=== PATIENT | female | born 1980 | race Caucasian/White ===

== ENCOUNTER 2019-09-16 19:14 | Emergency (ER) | payer OTHER ==
[~2019-09-16] VITALS: Ht 152.4 cm; Wt 54.4 kg
--- NOTE | 2019-09-16 19:18 | NUR ---
PT BRAD ALS. TAKEN TO BED 7
[2019-09-16 19:22] VITALS: BP 120/68
--- NOTE | 2019-09-16 19:23 | NUR ---
Dr. Mark examining patient.
--- NOTE | 2019-09-16 19:29 | NUR ---
39 YO FEMALE BIBA FROM [facility] FOR HYPOGLYCEMIA. PT STATED THAT SHE DID PASS OUT. BS WAS 26 UPON EMT ARRIVAL. PT WAS GIVEN D10 IN THE FIELD AND UPON ARRIVAL TO ER HER BS IS 162. PT IS ABLE TO TALK AND DOES NOT APPEAR TO BE DISORIENTED AT THIS TIME. VSS AT THIS TIME. WILL CONTINUE TO MONITOR
--- NOTE | 2019-09-16 20:08 | NUR ---
BS 143
--- NOTE | 2019-09-16 20:45 | NUR ---
[facility] CALLED FOR PT PICKUP
[2019-09-16 21:03] VITALS: BP 126/72
--- NOTE | 2019-09-16 22:46 | NUR ---
Patient discharged with v/s stable. Written and verbal after care instructions given and explained. Patient verbalized understanding. Ambulatory with steady gait. All questions addressed prior to discharge. Advised to follow up with PMD.
== END 2019-09-16 21:03 | disposition home or self-care (01) ==
LOC: MED 19:14
DX: E10.649 Type 1 diabetes mellitus with hypoglycemia without coma (principal)
CPT/HCPCS: 82948; 99283